=== PATIENT | female | born 1955 | race Caucasian/White ===

== ENCOUNTER 2019-11-06 06:29 | Day surgery (SDC) | payer OTHER ==
[2019-11-01 16:54] LABS: BASOPHILS % (AUTO) 0.2 % (0-1); EOSINOPHILS % (AUTO) 0.5 % (0-6); LYMPHOCYTES # (AUTO) 1.9 X10'3 (1.1-4.8); LYMPHOCYTES % (AUTO) 18.9 % (21-51); MEAN CORPUSCULAR HEMOGLOBIN 29.8 PG (27.0-31.0); MEAN CORPUSCULAR HGB CONC 33.7 g/dL (33.0-36.5); MEAN CORPUSCULAR VOLUME 88.4 FL (78-98); MEAN PLATELET VOLUME 10.4 FL (7.4-10.4); MONOCYTES # (AUTO) 0.7 X10'3 (0-0.9); MONOCYTES % (AUTO) 6.4 % (2-12); NEUTROPHILS # (AUTO) 7.6 X10'3 (1.8-7.7); PRE OP HEMATOCRIT 38.8 % (35.0-45.0); PRE OP HEMOGLOBIN 13.1 g/dL (12.0-16.0); PRE OP PLATELET COUNT 152 X10'3 (140-440); RED BLOOD COUNT 4.38 X10'6 (4.20-5.60); RED CELL DISTRIBUTION WIDTH 14.8 % (11.5-14.5)
[2019-11-01 17:05] LABS: ALKALINE PHOSPHATASE 83 IU/L (46-116); BLOOD UREA NITROGEN 26 MG/DL (7-18); BUN/CREATININE RATIO 22.2 (6.6-38.0); CALCIUM 10.1 MG/DL (8.5-10.1); CHLORIDE 102 MMOL/L (99-107); CREATININE 1.17 MG/DL (0.40-0.90); PRE OP ALT 22 U/L (30-65); PRE OP ANION GAP 12 (8-16); PRE OP AST 15 U/L (10-37); PRE OP BILIRUB, TOTAL 0.1 MG/DL (0.0-1.0); PRE OP GLUCOSE 135 MG/DL (70-104); PRE OP POTASSIUM 4.4 MMOL/L (3.4-5.1); PRE OP SODIUM 136 MMOL/L (135-145); TOTAL CARBON DIOXIDE 22.4 MMOL/L (24-32); eGFR 47 ML/MIN
[~2019-11-06] VITALS: Ht 160 cm; Wt 76.8 kg
[~2019-11-06 06:29] MED LIST: ADV50100 INH; ALBU18HF2 INH; LORA-269 PO; MAGN1TAB PO; METF500T PO; NORCO10T PO; PROM12.510 PO; PSYL0.4C2 PEG; SYN0.025T PO; albuterol 2.5 MG/3 ML nebule NEB ONE; cefazolin/dext.iso 2gm/100ml 100 ML IV ONE; famotidine 10mg tablet PO ONE; ringers solution, lacted 1,000 ML IV SCH
[2019-11-06] MEDS ORDERED: BUPIVAcaine/PF 2.5mg/ml (0.25%) 10ml vial ONE (06:43)
[2019-11-06] MEDS ORDERED: LIDOcaine 0.5% (5mg/ml) 50ml vial ONE (07:10)
[2019-11-06] MEDS ORDERED: ringers solution, lacted 1,000 ML IV SCH (07:14)
[2019-11-06] MEDS ORDERED: ondansetron/PF 4mg/2ml inj IV PRN (07:15)
[2019-11-06] MEDS ORDERED: fentaNYL/PF 50MCG/1 ML 2ML syringe IV PRN ×2 (07:15)
[2019-11-06] MEDS ORDERED: labetalol 20mg/4ml (5mg/ml) syringe IV PRN (07:15)
[2019-11-06] MEDS ORDERED: hydrALAZINE 20mg/ml inj. IV PRN (07:15)
[2019-11-06 07:22] VITALS: BP 133/82
[2019-11-06 07:31] VITALS: BP 133/82
[2019-11-06] MEDS ORDERED: midazolam 2 mg/2 ml injection ONE (08:25)
[2019-11-06] MEDS ORDERED: fentaNYL/PF 50MCG/1 ML 2ML syringe ONE ×2 (08:25→08:52)
[2019-11-06] MEDS ORDERED: propofol 10mg/ml 20ml vial IV ONE (08:32)
[2019-11-06] MEDS ORDERED: MIDAZolam 1mg/ml 10ml vial ONE (08:52)
[2019-11-06 09:19] VITALS: BP 113/56
--- NOTE | 2019-11-06 09:19 | NUR ---
Received from OR via , accompanied by Anesthesiologist DR WHITING and report given by Anesthesiolgist. AWAKENS TO VOICE. VITAL STABLE. DRESSING DI. FINGERS COOL AND PINK. MELVIN PAIN.
[2019-11-06 09:29] VITALS: BP 90/41
[2019-11-06 09:39] VITALS: BP 101/53
--- NOTE | 2019-11-06 09:59 | NUR ---
AWAKE AND ORIENTED. VITAL STABLE. DRESSING DI. MELVIN PAIN. HOME WITH HER SPOUSE AT THIS TIME.
== END 2019-11-06 09:59 | disposition home or self-care (01) ==
LOC: PAS 06:29
PROVIDERS: ATTEND Orthopaedic Surgery Hand Surgery
DX: G56.02 Carpal tunnel syndrome, left upper limb (principal); E11.22 Type 2 diabetes mellitus with diabetic chronic kidney disease; N18.9 Chronic kidney disease, unspecified; J44.9 Chronic obstructive pulmonary disease, unspecified; F41.9 Anxiety disorder, unspecified; E03.9 Hypothyroidism, unspecified; M19.90 Unspecified osteoarthritis, unspecified site; Z90.49 Acquired absence of other specified parts of digestive tract; Z98.890 Other specified postprocedural states; Z87.891 Personal history of nicotine dependence; Z88.5 Allergy status to narcotic agent; Z88.8 Allergy status to other drugs, medicaments and biological substances; Z79.84 Long term (current) use of oral hypoglycemic drugs; Z79.899 Other long term (current) drug therapy; Z86.19 Personal history of other infectious and parasitic diseases; Z86.73 Personal history of transient ischemic attack (TIA), and cerebral infarction without residual deficits
CPT/HCPCS: 36415; 64721; 80053; 82948; 85025; 85610; 85730; 93005; 94640; J2001; J2250; J2704; J3010; J3490; A4215; J7120

== ENCOUNTER 2019-12-18 07:03 | Day surgery (SDC) | payer OTHER ==
[~2019-12-18] VITALS: Ht 160 cm; Wt 78.4 kg
[~2019-12-18 07:03] MED LIST changes: +BUPIVAcaine/PF 2.5mg/ml (0.25%) 10ml vial ONE; -PSYL0.4C2 PEG; +PSYL0.4C2 PO; -famotidine 10mg tablet PO ONE; +famotidine 20mg tablet PO ONE
[2019-12-18] MEDS ORDERED: LIDOcaine 0.5% (5mg/ml) 50ml vial ONE (07:20)
[2019-12-18 08:29] VITALS: BP 136/76
[2019-12-18 08:34] VITALS: BP 136/76
[2019-12-18 09:04] LABS: BASOPHILS % (AUTO) 0.6 % (0-1); EOSINOPHILS # (AUTO) 0.1 X10'3 (0-0.9); EOSINOPHILS % (AUTO) 2.6 % (0-6); LYMPHOCYTES # (AUTO) 1.5 X10'3 (1.1-4.8); LYMPHOCYTES % (AUTO) 27.4 % (21-51); MEAN CORPUSCULAR HGB CONC 33.6 g/dL (33.0-36.5); MEAN CORPUSCULAR VOLUME 89.3 FL (78-98); MEAN PLATELET VOLUME 10.5 FL (7.4-10.4); MONOCYTES # (AUTO) 0.5 X10'3 (0-0.9); MONOCYTES % (AUTO) 9.6 % (2-12); NEUTROPHILS # (AUTO) 3.2 X10'3 (1.8-7.7); NEUTROPHILS % (AUTO) 59.8 % (42-75); PRE OP HEMATOCRIT 37.6 % (35.0-45.0); PRE OP HEMOGLOBIN 12.6 g/dL (12.0-16.0); PRE OP PLATELET COUNT 117 X10'3 (140-440); RED BLOOD COUNT 4.21 X10'6 (4.20-5.60); RED CELL DISTRIBUTION WIDTH 14.2 % (11.5-14.5)
[2019-12-18 09:22] LABS: ALBUMIN 3.8 G/DL (3.4-5.0); ALKALINE PHOSPHATASE 72 IU/L (46-116); BLOOD UREA NITROGEN 16 MG/DL (7-18); BUN/CREATININE RATIO 14.8 (6.6-38.0); CHLORIDE 105 MMOL/L (99-107); CREATININE 1.08 MG/DL (0.40-0.90); PRE OP ALT 18 U/L (30-65); PRE OP ANION GAP 8 (8-16); PRE OP AST 20 U/L (10-37); PRE OP BILIRUB, TOTAL 0.3 MG/DL (0.0-1.0); PRE OP GLUCOSE 147 MG/DL (70-104); PRE OP SODIUM 139 MMOL/L (135-145); TOTAL CARBON DIOXIDE 26.5 MMOL/L (24-32); TOTAL PROTEIN 7.7 G/DL (6.4-8.2); eGFR 51 ML/MIN
[2019-12-18] MEDS ORDERED: ringers solution, lacted 1,000 ML IV SCH (09:43)
[2019-12-18] MEDS ORDERED: labetalol 20mg/4ml (5mg/ml) syringe IV PRN (09:45)
[2019-12-18] MEDS ORDERED: hydrALAZINE 20mg/ml inj. IV PRN (09:45)
[2019-12-18] MEDS ORDERED: ondansetron/PF 4mg/2ml inj IV PRN (09:45)
[2019-12-18] MEDS ORDERED: fentaNYL/PF 50MCG/1 ML 2ML syringe IV PRN ×2 (09:45)
[2019-12-18] MEDS ORDERED: propofol 10mg/ml 20ml vial IV ONE (12:29)
[2019-12-18] MEDS ORDERED: fentaNYL/PF 50MCG/1 ML 2ML syringe ONE (12:40)
[2019-12-18] MEDS ORDERED: midazolam 2 mg/2 ml injection ONE (12:40)
[2019-12-18 12:59] VITALS: BP 148/96
--- NOTE | 2019-12-18 12:59 | NUR ---
Received from OR via , accompanied by Anesthesiologist DR WHITING and report given by Anesthesiolgist. AWAKE AND MELVIN PAIN. VITALS STABLE. DRESSING DI. FINGERS COOL AND PINK.
[2019-12-18 13:09] VITALS: BP 131/58
[2019-12-18 13:19] VITALS: BP 137/70
[2019-12-18 13:29] VITALS: BP 125/71
--- NOTE | 2019-12-18 13:39 | NUR ---
AWAKE AND ORIENTED. VITALS STABLE. DRESSING DI. HOME WITH HER SPOUSE AT THIS TIME.
== END 2019-12-18 13:39 | disposition home or self-care (01) ==
LOC: PAS 07:03
PROVIDERS: ATTEND Orthopaedic Surgery Hand Surgery
DX: G56.01 Carpal tunnel syndrome, right upper limb (principal); E11.9 Type 2 diabetes mellitus without complications; G89.29 Other chronic pain; Z88.6 Allergy status to analgesic agent; M16.11 Unilateral primary osteoarthritis, right hip; E03.9 Hypothyroidism, unspecified; Z98.890 Other specified postprocedural states; Z88.8 Allergy status to other drugs, medicaments and biological substances; Z79.899 Other long term (current) drug therapy; Z90.49 Acquired absence of other specified parts of digestive tract
CPT/HCPCS: 36415; 64721; 80053; 85025; 93005; 94640; 94760; J2001; J2250; J2704; J3010; J3490; 76937; A4215; J7120

== ENCOUNTER 2022-07-18 12:45 | Emergency (ER) | payer OTHER ==
[~2022-07-18] VITALS: Ht 160 cm; Wt 81.0 kg
[~2022-07-18 12:45] MED LIST changes: -BUPIVAcaine/PF 2.5mg/ml (0.25%) 10ml vial ONE; -albuterol 2.5 MG/3 ML nebule NEB ONE; -cefazolin/dext.iso 2gm/100ml 100 ML IV ONE; -famotidine 20mg tablet PO ONE; -ringers solution, lacted 1,000 ML IV SCH
[2022-07-18 13:49] LABS: BASOPHILS % (AUTO) 0.7 % (0-1); EOSINOPHILS # (AUTO) 0.1 X10'3 (0-0.9); EOSINOPHILS % (AUTO) 2.1 % (0-6); HEMATOCRIT 40.2 % (35.0-45.0); HEMOGLOBIN 13.4 g/dl (12.0-16.0); LYMPHOCYTES # (AUTO) 1.6 X10'3 (1.1-4.8); LYMPHOCYTES % (AUTO) 31.8 % (21-51); MEAN CORPUSCULAR HGB CONC 33.3 g/dL (33.0-36.5); MEAN CORPUSCULAR VOLUME 90.1 FL (78-98); MEAN PLATELET VOLUME 10.7 FL (7.4-10.4); MONOCYTES # (AUTO) 0.4 X10'3 (0-0.9); MONOCYTES % (AUTO) 7.1 % (2-12); NEUTROPHILS # (AUTO) 2.9 X10'3 (1.8-7.7); NEUTROPHILS % (AUTO) 58.3 % (42-75); PLATELET COUNT 112 X10'3 (140-440); RED BLOOD COUNT 4.47 X10'6 (4.20-5.60); RED CELL DISTRIBUTION WIDTH 14.5 % (11.5-14.5); WHITE BLOOD COUNT 4.9 X10'3 (4.5-11.0)
[2022-07-18 13:53] LABS: ALANINE AMINOTRANSFERASE 25 U/L (12-78); ALBUMIN 3.8 G/DL (3.4-5.0); ALBUMIN/GLOBULIN RATIO 0.9 (1.1-1.5); ALKALINE PHOSPHATASE 77 IU/L (46-116); ANION GAP 9 (8-16); ASPARTATE AMINO TRANSFERASE 19 U/L (10-37); BILIRUBIN,TOTAL 0.3 MG/DL (0.1-1.0); BLOOD UREA NITROGEN 16 MG/DL (7-18); BUN/CREATININE RATIO 14.3 (6.6-38.0); CALCIUM 10.7 MG/DL (8.5-10.1); CHLORIDE 102 MMOL/L (99-107); CREATININE 1.12 MG/DL (0.40-0.90); GLUCOSE 132 MG/DL (70-104); LIPASE 148 U/L (73-393); POTASSIUM 4.9 MMOL/L (3.5-5.1); SODIUM 139 MMOL/L (135-145); TOTAL CARBON DIOXIDE 27.7 MMOL/L (24-32); eGFR 49 ML/MIN
[2022-07-18 14:00] VITALS: BP 159/81
[2022-07-18] MEDS ORDERED: mag hydrox/Alum hydrox/simeth 30ml oral suspension PO ONE (14:05)
[2022-07-18] MEDS ORDERED: LIDOcaine Viscous 15ml cup MM ONE (14:05)
[2022-07-18] MEDS ORDERED: ketorolac trometh. 30mg/ml inj. IM ONE (14:05)
[2022-07-18] MEDS ORDERED: LORazepam 1 MG tablet PO ONE (15:55)
--- NOTE | 2022-07-18 16:25 | NUR ---
WENT TO PTS ROOM TO ADMINISTER MEDICATION. PT WAS NOT IN ROOM. PT WAS SEEN LEAVING ON THE SECURITY CAMERAS. PT LEFT PRIOR TO DC. PT ELOPED.
== END 2022-07-18 17:10 | disposition left against medical advice (07) ==
LOC: ER 12:46
DX: R10.13 Epigastric pain (principal); R06.02 Shortness of breath; R07.81 Pleurodynia; I51.9 Heart disease, unspecified; E11.9 Type 2 diabetes mellitus without complications; Z88.6 Allergy status to analgesic agent; Z88.5 Allergy status to narcotic agent; Z79.899 Other long term (current) drug therapy; Z88.8 Allergy status to other drugs, medicaments and biological substances
CPT/HCPCS: 36415; 71045; 74176; 80053; 83690; 84145; 84484; 85025; 96372; 99285; J1885

== ENCOUNTER 2024-11-30 10:50 | Emergency (ER) | payer MEDICARE, OTHER ==
[~2024-11-30] VITALS: Ht 157.5 cm; Wt 77.0 kg
[2024-11-30 11:19] LABS: EOSINOPHILS # (AUTO) 0.1 X10'3 (0-0.9); HEMOGLOBIN 13.7 g/dl (12.0-16.0); LYMPHOCYTES # (AUTO) 1.5 X10'3 (1.1-4.8); MEAN CORPUSCULAR HGB CONC 33.1 g/dL (33.0-36.5); MEAN PLATELET VOLUME 10.9 FL (7.4-10.4); MONOCYTES # (AUTO) 0.4 X10'3 (0-0.9); NEUTROPHILS % (AUTO) 64.8 % (42-75); RED CELL DISTRIBUTION WIDTH 13.9 % (11.5-14.5)
[2024-11-30 11:21] LABS: BASOPHILS % (AUTO) 0.6 % (0-1); HEMATOCRIT 41.2 % (35.0-45.0); LYMPHOCYTES % (AUTO) 26.1 % (21-51); MEAN CORPUSCULAR HEMOGLOBIN 30.6 PG (27.0-31.0); MEAN CORPUSCULAR VOLUME 92.4 FL (78-98); MONOCYTES % (AUTO) 6.5 % (2-12); NEUTROPHILS # (AUTO) 3.6 X10'3 (1.8-7.7); PLATELET COUNT 155 X10'3 (140-440); RED BLOOD COUNT 4.46 X10'6 (4.20-5.60); WHITE BLOOD COUNT 5.6 X10'3 (4.5-11.0)
[2024-11-30 11:35] LABS: ALANINE AMINOTRANSFERASE 31 U/L (12-78); ALBUMIN 4.3 G/DL (3.4-5.0); ALKALINE PHOSPHATASE 53 IU/L (46-116); ANION GAP 14 (8-16); ASPARTATE AMINO TRANSFERASE 22 U/L (10-37); BILIRUBIN,TOTAL 0.4 MG/DL (0.1-1.0); BLOOD UREA NITROGEN 13 MG/DL (7-18); BUN/CREATININE RATIO 11.5 (10.0-20.0); CALCIUM 9.6 MG/DL (8.5-10.1); CHLORIDE 101 MMOL/L (99-107); CREATININE 1.13 MG/DL (0.40-0.90); GLUCOSE 160 MG/DL (70-104); POTASSIUM 3.5 MMOL/L (3.5-5.1); SODIUM 139 MMOL/L (135-145); TOTAL CARBON DIOXIDE 24.3 MMOL/L (24-32); TOTAL PROTEIN 8.6 G/DL (6.4-8.2); eCRCL 37 ML/MIN; eGFR 48 ML/MIN
[2024-11-30 11:43] LABS: LIPASE 50 U/L (16-77); PRO BRAIN NATRIURETIC PEPTIDE 124 PG/ML (0-125)
[2024-11-30 17:08] LABS: BILIRUBIN,URINE SMALL (Neg); CLARITY,URINE CLEAR (Clear); COLOR,URINE YELLOW (Yellow); GLUCOSE, URINE NEGATIVE (Neg); KETONES,URINE 15 mg/dl (Neg); LEUKOCYTE ESTERASE ,URINE NEGATIVE (Neg); NITRITES, URINE NEGATIVE (Neg); OCCULT BLOOD,URINE NEGATIVE (Neg); PROTEIN,URINE TRACE mg/dl (Neg); UROBILINOGEN,URINE 0.2 E.U/dL (0.2-1.0)
[2024-11-30 17:16] LABS: UA COLLECTION TYPE VOIDED
[2024-11-30 17:18] LABS: BACTERIA,URINE 3+ /HPF (Neg); RBC,URINE 0-2 /HPF (0-2); SQUAMOUS EPITHELIAL CELL,UR MODERATE /LPF (FEW)
[2024-11-30 17:27] VITALS: BP 133/74; O2SAT 98
[2024-11-30] MEDS ORDERED: metoclopramide 5 mg/ml inj IV ONE (18:10)
[2024-11-30] MEDS: ondansetron 4mg rapidly disintigrating tab PO ONE (19:37)
[2024-11-30] MEDS: ketorolac trometh 30MG/ML vial 30 MG/ML VIAL IV ONE (19:37)
[2024-11-30] MEDS: diphenhydrAMINE 50 mg/ml inj IV ONE (19:38)
[2024-11-30] MEDS: normal saline 1000ml 1,000 ML IV ONE (19:43)
[2024-11-30] MEDS ORDERED: ONDA-243 PO (19:53)
[2024-11-30] MEDS ORDERED: HYDR-3965 PO (19:53)
[2024-11-30] MEDS ORDERED: METR-159 PO (19:53)
[2024-11-30] MEDS ORDERED: CIPR750T14 PO (19:53)
[2024-11-30] MEDS: morphine 4 MG/ML inj SYRINge IV ONE (20:19)
[2024-11-30 21:18] VITALS: PULSE 87; RESP 11; TEMP 99.4
== END 2024-11-30 21:25 | disposition home or self-care (01) ==
LOC: ER 10:51
DX: K52.9 Noninfective gastroenteritis and colitis, unspecified (principal); R10.13 Epigastric pain; I25.10 Atherosclerotic heart disease of native coronary artery without angina pectoris; E11.9 Type 2 diabetes mellitus without complications; Z85.3 Personal history of malignant neoplasm of breast; Z88.5 Allergy status to narcotic agent; Z88.8 Allergy status to other drugs, medicaments and biological substances; Z90.49 Acquired absence of other specified parts of digestive tract
CPT/HCPCS: 36415; 71045; 74176; 76700; 80053; 81001; 83690; 83880; 84484; 85025; 87088; 93005; 96361; 96374; 96375; 99285; J1200; J1885; J2270; J7030